=== PATIENT | male | born 1965 | race Caucasian/White ===

== ENCOUNTER 2018-12-05 12:21 | Emergency (ER) | payer OTHER ==
[2018-12-05] MEDS ORDERED: Sodium Chloride 0.9% 10 ML Syringe FLUSH PRN (12:29)
[2018-12-05] MEDS ORDERED: Sodium Chloride 0.9% 2.5 ML Syringe FLUSH PRN (12:29)
[2018-12-05] MEDS ORDERED: Sodium Chloride 0.9% 1,000 ML IV SCH (12:30)
--- NOTE | 2018-12-05 12:31 | EDM.PDOC ---
ED HPI GENERAL MEDICAL PROBLEM - General Chief Complaint: Cardiovascular Problem Stated Complaint: BLOOD PRESSURE Time Seen by Provider: 12/05/18 12:27 - History of Present Illness INITIAL COMMENTS - FREE TEXT/NARRATIVE: HISTORY AND PHYSICAL: History of present illness: Patient 53-year-old male was sent here from the NH after having been seen for intermittent dizziness and noted be orthostatic. Patient denies chest pain shortness of breath or other concern he is also followed for psychiatric conditions which have been stable he denies nausea vomiting palpitations or other concern Review of systems: As per history of present illness and below otherwise all systems reviewed and negative. Past medical history: As per history of present illness and as reviewed below otherwise noncontributory. Surgical history: As per history of present illness and as reviewed below otherwise noncontributory. Social history: No reported history of drug or alcohol abuse. Family history: As per history of present illness and as reviewed below otherwise noncontributory. Physical exam: HEENT: Atraumatic, normocephalic, pupils reactive, negative for conjunctival pallor or scleral icterus, mucous membranes moist, throat clear, neck supple, nontender, trachea midline. Lungs: Clear to auscultation, breath sounds equal bilaterally, chest nontender. Heart: S1S2, regular, negative for clicks, rubs, or JVD. Abdomen: Soft, nondistended, nontender. Negative for masses or hepatosplenomegaly. Negative for costovertebral tenderness. Pelvis: Stable nontender. Genitourinary: Deferred. Rectal: Deferred. Extremities: Atraumatic, negative for cords or calf pain. Neurovascular unremarkable. Neuro: Awake, alert, oriented. Cranial nerves II through XII unremarkable. Cerebellum unremarkable. Motor and sensory unremarkable throughout. Exam nonfocal. Diagnostics: CBC CMP PT/INR troponin chest x-ray EKG CT brain Therapeutics: Saline 500 mL bolus Impression: #1 intermittent dizziness #2 history of orthostatic hypotension #3 history of hypertension Definitive disposition and diagnosis as appropriate pending reevaluation and review of above. - Related Data Allergies Allergy/AdvReac Type Severity Reaction Status Date / Time No Known Allergies Allergy Verified 12/05/18 12:24 Home Meds: Home Meds Insulin Aspart [NovoLOG] 0 units SQ ASDIRECTED 09/05/17 [History] Insulin Glarg,Human.Rec.Analog [Lantus] 100 units SQ BEDTIME 09/05/17 [History] metFORMIN HCl [Fortamet] 2,000 mg PO DAILY 09/05/17 [History] Betamethasone/Propylene Glyc [Betamethasone DP Aug 0.05%] 1 dose TOP BID [History] Cholecalciferol (Vitamin D3) [Children's Vitamin D3] 2,000 units PO DAILY [History] DULoxetine HCl [Duloxetine HCl] 30 mg PO DAILY 12/05/18 [History] DULoxetine HCl [Duloxetine HCl] 60 mg PO DAILY 12/05/18 [History] Gabapentin [Neurontin] 600 mg PO TID 12/05/18 [History] Losartan [Cozaar] 100 mg PO BEDTIME 12/05/18 [History] Tamsulosin [Flomax] 0.4 mg PO DAILY 12/05/18 [History] Terbinafine HCl [Terbinafine] 250 mg PO DAILY 12/05/18 [History] atorvaSTATin [Lipitor] 80 mg PO BEDTIME 12/05/18 [History] glipiZIDE [Glucotrol Xl] 5 mg PO BID 12/05/18 [History] hydrOXYzine HCl [Hydroxyzine HCl] 25 mg PO TID 12/05/18 [History] traZODone HCl [Trazodone HCl] 100 mg PO BEDTIME 12/05/18 [History] Past Medical History Cardiovascular History: Reports: High Cholesterol, Hypertension Psychiatric History: Reports: Anxiety, Depression, Suicide Attempt Endocrine/Metabolic History: Reports: Diabetes, Type I Social & Family History - Family History Family Medical History: Noncontributory ED ROS GENERAL - Review of Systems Review Of Systems: ROS reveals no pertinent complaints other than HPI. ED EXAM, GENERAL - Physical Exam Exam: See Below (See dictation) Course - Vital Signs Text/Narrative:: Patient's emergency room course has been unremarkable he requests [facility] he'll continue his current medications return as needed as discussed Last Recorded V/S: Last Vital Signs Temp 35.7 C 12/05/18 12:26 Pulse 112 H 12/05/18 12:26 Resp 18 12/05/18 12:26 BP 140/85 12/05/18 12:26 Pulse Ox 96 12/05/18 12:26 - Orders/Labs/Meds Orders: Active Orders 24 hr Category Date Time Status Cardiac Monitoring [RC] . DIRECTED Care 12/05/18 12:28 Active EKG 12 Lead [EKG Documentation Completion] [RC] STAT Care 12/05/18 12:26 Active EKG Documentation Completion [RC] STAT Care 12/05/18 12:28 Active Pulse Oximetry [RC] ASDIRECTED Care 12/05/18 12:28 Active UA RFX NOE AND CULT IF INDIC [URIN] Stat Lab 12/05/18 13:26 Received Sodium Chloride 0.9% [Normal Saline] 1,000 ml Med 12/05/18 12:30 Active IV STAT Sodium Chloride 0.9% [Saline Flush] Med 12/05/18 12:29 Active 10 ml FLUSH ASDIRECTED PRN Sodium Chloride 0.9% [Saline Flush] Med 12/05/18 12:29 Active 2.5 ml FLUSH ASDIRECTED PRN Saline Lock Insert [OM.PC] Stat Oth 12/05/18 12:28 Ordered Medication Orders Sodium Chloride (Normal Saline) 1,000 mls @ 125 mls/hr IV STAT PEPITO Last Admin: 12/05/18 13:00 Dose: 125 mls/hr Sodium Chloride (Saline Flush) 10 ml FLUSH ASDIRECTED PRN PRN Reason: Keep Vein Open Sodium Chloride (Saline Flush) 2.5 ml FLUSH ASDIRECTED PRN PRN Reason: Keep Vein Open Labs: Laboratory Tests 12/05/18 12/05/18 12/05/18 Range/Units 12:45 12:45 12:45 WBC 6.58 (4.0-11.0) K/uL RBC 4.96 (4.50-5.90) M/uL Hgb 13.5 (13.0-17.0) g/dL Hct 40.9 (38.0-50.0) % MCV 82.5 (80.0-98.0) fL MCH 27.2 (27.0-32.0) pg MCHC 33.0 (31.0-37.0) g/dL RDW Std Deviation 39.0 (28.0-62.0) fl RDW Coeff of Joel 13 (11.0-15.0) % Plt Count 238 (150-400) K/uL MPV 9.30 (7.40-12.00) fL Neut % (Auto) 52.6 (48.0-80.0) % Lymph % (Auto) 37.8 (16.0-40.0) % H[place] % (Auto) 7.4 (0.0-15.0) % Eos % (Auto) 1.7 (0.0-7.0) % Baso % (Auto) 0.5 (0.0-1.5) % Neut # (Auto) 3.5 (1.4-5.7) K/uL Lymph # (Auto) 2.5 H (0.6-2.4) K/uL [place] # (Auto) 0.5 (0.0-0.8) K/uL Eos # (Auto) 0.1 (0.0-0.7) K/uL Baso # (Auto) 0.0 (0.0-0.1) K/uL Nucleated RBC % 0.0 /100WBC Nucleated RBCs # 0 K/uL INR 1.02 Sodium 137 (136-148) mmol/L Potassium 4.3 (3.5-5.1) mmol/L Chloride 99 (98-107) mmol/L Carbon Dioxide 30.6 (21.0-32.0) mmol/L BUN 20 H (7.0-18.0) mg/dL Creatinine 1.5 H (0.8-1.3) mg/dL Est Cr Clr Drug Dosing 52.02 mL/min Estimated GFR (MDRD) 48.6 ml/min Glucose 220 H (74-106) mg/dL Calcium 10.1 (8.5-10.1) mg/dL Total Bilirubin 0.4 (0.2-1.0) mg/dL AST 15 (15-37) IU/L ALT 35 (14-63) IU/L Alkaline Phosphatase 67 (46-116) U/L Troponin I < 0.050 (0.000-0.056) ng/mL Total Protein 7.8 (6.4-8.2) g/dL Albumin 4.3 (3.4-5.0) g/dL Globulin 3.5 (2.6-4.0) g/dL Albumin/Globulin Ratio 1.2 (0.9-1.6) Meds: Medications Generic Name Dose Route Start Last Admin Trade Name Freq PRN Reason Stop Dose Admin Sodium Chloride 1,000 mls @ 125 mls/hr 12/05/18 12:30 12/05/18 13:00 Normal Saline IV 125 mls/hr STAT PEPITO Administration Sodium Chloride 10 ml 12/05/18 12:29 Saline Flush FLUSH ASDIRECTED PRN Keep Vein Open Sodium Chloride 2.5 ml 12/05/18 12:29 Saline Flush FLUSH ASDIRECTED PRN Keep Vein Open Departure - Departure Time of Disposition: 13:55 Disposition: Home, Self-Care 01 Condition: Good Clinical Impression: Encounter for medical screening examination, History of dizziness, History of orthostatic hypotension Referrals: [facility] [Primary Care Provider] - Forms: ED Department Discharge Additional Instructions: The following information is given to patients seen in the emergency department who are being discharged to home. This information is to outline your options for follow-up care. We provide all patients seen in our emergency department with a follow-up referral. The need for follow-up, as well as the timing and circumstances, are variable depending upon the specifics of your emergency department visit. If you don't have a primary care physician on staff, we will provide you with a referral. We always advise you to contact your personal physician following an emergency department visit to inform them of the circumstance of the visit and for follow-up with them and/or the need for any referrals to a consulting specialist. The emergency department will also refer you to a specialist when appropriate. This referral assures that you have the opportunity for followup care with a specialist. All of these measure are taken in an effort to provide you with optimal care, which includes your followup. Under all circumstances we always encourage you to contact your private physician who remains a resource for coordinating your care. When calling for followup care, please make the office aware that this follow-up is from your recent emergency room visit. If for any reason you are refused follow-up, please contact the [facility] emergency department at and asked to speak to the emergency department charge nurse. Continue current medications follow-up private medical doctor return as needed as discussed - My Orders Last 24 Hours: My Active Orders 12/05/18 12:26 EKG 12 Lead [EKG Documentation Completion] [RC] STAT 12/05/18 12:28 Cardiac Monitoring [RC] . DIRECTED EKG Documentation Completion [RC] STAT Pulse Oximetry [RC] ASDIRECTED Saline Lock Insert [OM.PC] Stat 12/05/18 12:29 Sodium Chloride 0.9% [Saline Flush] 10 ml FLUSH ASDIRECTED PRN Sodium Chloride 0.9% [Saline Flush] 2.5 ml FLUSH ASDIRECTED PRN 12/05/18 12:30 Sodium Chloride 0.9% [Normal Saline] 1,000 ml IV STAT 12/05/18 13:26 UA RFX NOE AND CULT IF INDIC [URIN] Stat - Assessment/Plan Last 24 Hours: My Active Orders 12/05/18 12:26 EKG 12 Lead [EKG Documentation Completion] [RC] STAT 12/05/18 12:28 Cardiac Monitoring [RC] . DIRECTED EKG Documentation Completion [RC] STAT Pulse Oximetry [RC] ASDIRECTED Saline Lock Insert [OM.PC] Stat 12/05/18 12:29 Sodium Chloride 0.9% [Saline Flush] 10 ml FLUSH ASDIRECTED PRN Sodium Chloride 0.9% [Saline Flush] 2.5 ml FLUSH ASDIRECTED PRN 12/05/18 12:30 Sodium Chloride 0.9% [Normal Saline] 1,000 ml IV STAT 12/05/18 13:26 UA RFX NOE AND CULT IF INDIC [URIN] Stat
--- NOTE | 2018-12-05 13:09 | CR ---
Chest: Frontal view of the chest was obtained. Comparison: Prior chest x-ray of 09/05/17. Heart size and mediastinum are normal. Lungs are clear. Bony structures are grossly intact. Impression: Nothing acute is seen on frontal chest x-ray. Diagnostic code #1 MTDD
--- NOTE | 2018-12-05 13:10 | CT ---
Head CT Technique: Multiple axial sections through the brain were obtained. Intravenous contrast was not utilized. Comparison: No prior intracranial imaging is available. Findings: Ventricles along with basal cisterns and sulci over the convexities are mildly prominent. No abnormal parenchymal densities are seen. No evidence of intracranial hemorrhage. No midline shift or mass effect is seen. Bone window settings were reviewed which shows no acute paranasal sinus disease. Mastoid sinuses are clear. No acute calvarial abnormality is appreciated. Impression: Nothing acute is appreciated on noncontrast head CT exam. Diagnostic code #1 MTDD
[2018-12-05 13:18] LABS: BLOOD UREA NITROGEN,BUN 20 mg/dL (7.0-18.0); CARBON DIOXIDE,CO2 30.6 mmol/L (21.0-32.0); CHLORIDE,CL 99 mmol/L (98-107); GLUCOSE RANDOM 220 mg/dL (74-106); POTASSIUM,K 4.3 mmol/L (3.5-5.1); SODIUM,NA 137 mmol/L (136-148)
== END 2018-12-05 14:10 | disposition home or self-care (01) ==
LOC: MW.ED 12:21
DX: R42 Dizziness and giddiness (principal); I10 Essential (primary) hypertension; E10.9 Type 1 diabetes mellitus without complications; F41.9 Anxiety disorder, unspecified; F32.9 Major depressive disorder, single episode, unspecified; Z86.79 Personal history of other diseases of the circulatory system; Z79.899 Other long term (current) drug therapy
CPT/HCPCS: 36415; 70450; 71045; 80053; 81003; 84484; 85025; 85610; 93005; 96360; 99284; J7040